=== PATIENT | male | born 1995 | race Caucasian/White ===

== ENCOUNTER 2017-09-06 10:44 | Emergency (ER) | payer BC, SELFPAY ==
[2017-09-06 10:46] VITALS: BP 126/83; PULSE 108; RESP 16; TEMP 37.1; O2SAT 99; BMI 25.1
--- NOTE | 2017-09-06 11:14 | ED.VISSUMM ---
- ER Visit Summary Date of Service: 09/06/17 Chief Complaint: Back pain History of Present Illness: The patient is a 22 M with low back pain since yesterday. No injury or inciting events. He does have a remote history of a compression fracture, he thinks T11 after injuring it while doing squats. This was treated nonoperatively. He denies any weakness or numbness. Denies any change in bowel or bladder. Denies any fevers or infectious symptoms. Denies GI or visceral symptoms. Physical Examination: Heart rate 108 but otherwise vitals unremarkable. Afebrile. Patient is nontoxic and in no acute distress. Back is tender to palpation over the mid lumbar spine towards the left side. There is no spinal tenderness. Overlying skin appears normal. Strength, sensation intact. Gait normal. Test Results: None indicated Emergency Department Course and Treatment: Patient has myofascial back pain. I have essentially no suspicion for fracture. There are no neurologic symptoms. This sounds like myofascial pain as he has tenderness over the paraspinal muscles. Will treat with ibuprofen and Flexeril. Patient declined medication here. Will refer him to primary care for follow-up. Treatment Plan: As above Disposition: Discharged Impression: 1. Left lumbar back pain This note was generated with [employer] dictation software. It may contain incorrect words, spelling, and punctuation that were not noted in review of the chart prior to signing ED Disposition - Plan for ED Patient: Chief Complaint: Back Referrals: Care Physician,No Primary [Primary Care Provider] -
--- NOTE | 2017-09-06 11:17 | ED.DEP ---
ED Disposition - Plan for ED Patient: Chief Complaint: Back Instructions: ED Spasm Back No Trauma Prescriptions: Cyclobenzaprine [Flexeril] 10 mg PO TID PRN #20 tab PRN Reason: Muscle Spasm Ibuprofen 600 mg PO TID #20 tab Referrals: Mariano Jimenes DO [NON CLINICAL AFFILIATE] -
== END 2017-09-06 11:27 | disposition home or self-care (01) ==
LOC: ED 11:17
PROVIDERS: Emergency Provider Emergency Medicine
DX: M54.5 Low back pain (principal); F17.210 Nicotine dependence, cigarettes, uncomplicated
CPT/HCPCS: 99282

== ENCOUNTER 2019-01-07 14:07 | Emergency (ER) | payer OTHER, SELFPAY ==
[2019-01-07 14:07] VITALS: BP 154/94; PULSE 73; RESP 16; TEMP 36.9; O2SAT 98; BMI 26.9
--- NOTE | 2019-01-07 14:28 | ED.VISSUMM ---
- ER Visit Summary Date of Service: 01/07/19 Chief Complaint: Left lower jaw pain with mild swelling after chipping a tooth History of Present Illness: The patient is a 23 M no past medical history. Currently on no medications no allergies to any medications. Patient states yesterday at work he was eating a bit down and chipped his left lower molar. Has previously been capped. States today he is noticed more pain and swelling to his left jaw there. No trouble swallowing or breathing. No fever or chills. Physical Examination: No acute distress. Vital signs stable afebrile. HEENT exam unremarkable except left lower jaw third molar from the back is previously been He has a chipped tooth has been fractured about a quarter the tooth is missing. There is mild gingival swelling. No abscess no fluctuance. Has no trouble opening closing his mouth. No trismus. No trouble swallowing or breathing. Minimal fullness to his left lower lateral jaw. No bony deformity. No lymphadenopathy. Lungs are clear. Heart regular rhythm no murmur. Abdomen soft nontender. Otherwise exam is unremarkable. Test Results: None Emergency Department Course and Treatment: Dental infection status post dental fracture. Pen-Vee K 500 here. He has an appointment to see the dentist tomorrow. Treatment Plan: VK 500 4 times daily for 7 days. Motrin Tylenol for pain. Warm salt water gargling. Follow-up with his dentist tomorrow. Disposition: Discharge Impression: Left lower molar fracture with dental infection This note was generated with [employer] dictation software. It may contain incorrect words, spelling, and punctuation that were not noted in review of the chart prior to signing ED Disposition - Plan for ED Patient: Referrals: Care Physician,No Primary [Primary Care Provider] -
--- NOTE | 2019-01-07 14:31 | ED.DEP ---
ED Disposition - Plan for ED Patient: Disposition: Home or Assisted Living Instructions: Dental Abscess Prescriptions: Penicillin Vk [Pen-Vee K , V-Cillin K] 500 mg PO 4X/DAY #30 tab Prescription Printed Additional Instructions: Motrin Tylenol for pain. Ice to jaw. Pen-Vee K 500 mg 4 times a day. See her dentist tomorrow.
[2019-01-07] MEDS: Penicillin Vk 250 MG Tablet 500 MG PO (14:37)
== END 2019-01-07 14:52 | disposition home or self-care (01) ==
LOC: ED 14:49
PROVIDERS: Emergency Provider Emergency Medicine
DX: S02.5XXA Fracture of tooth (traumatic), initial encounter for closed fracture (principal); K04.7 Periapical abscess without sinus; X58.XXXA Exposure to other specified factors, initial encounter; Y93.9 Activity, unspecified; Y92.9 Unspecified place or not applicable
CPT/HCPCS: 99283

== ENCOUNTER 2020-06-04 21:05 | Emergency (ER) | payer OTHER, SELFPAY ==
[2020-06-04 21:05] VITALS: BP 164/88; PULSE 104; RESP 16; TEMP 36.1; O2SAT 98; BMI 30.7
--- NOTE | 2020-06-04 21:33 | RAD_ITS ---
STUDY: X-RAY - LUMBAR SPINE REASON FOR EXAM: Male, 24 years old. SHARP BACK PAIN WHEN LIFTING THIS MORNING. HX OF COMPRESSION FRACTURES WITH LIFTING. TECHNIQUE: 3 view(s) of the lumbar spine were obtained. COMPARISON: 07 December 2011 FINDINGS: Lumbar spine is intact and aligned. There is chronic healed compression fracture of the superior endplate of T12 with mild anterior wedging deformity and 25% loss of height ventrally. Dorsal cortical height is intact. Mineralization is normal. Paraspinous soft tissue shadows are unremarkable. SI joints are normal. Appearance is stable since priors. RAD/Lumbar Spine 2 or 3 Views IMPRESSION: Normal lumbar spine, no change since prior. Chronic healed T12 anterior compression wedging fracture. No change since 2011. Electronically Signed: Ivan Cuevas, at 21:53 EST Tel , Service support ,
--- NOTE | 2020-06-04 21:44 | ED.DCSUM_ITS ---
- ER Visit Summary Date of Service: 06/04/20 Chief Complaint: Back pain History of Present Illness: The patient is a 24 M who sees Anam Torres. He reports he has back pain that began today while he was doing lifts. He denies any other trauma. No fall or MVA. Reports that he has a history of a fr acture in his back from doing squats and having the [place] on when he was in high school. States he has had 3-4 episodes of this over the past 6 months. Patient complains of a constant aching pain that is 4 out of 10 currently and 10 out of 10 in severity at worst. It is a sharp pain is worsened by movement or walking. Is relieved by remaining still. He is not taking anything for pain. Patient denies radiation to his legs. No numbness or weakness in his legs. No problems with his bowels or his bladder. No groin numbness. Patient denies red flags. Physical Examination: Vitals: Stable. Afebrile. General: A&O x 3. NAD. Cardiovascular exam: Regular rate and rhythm, no murmur, rub or gallop. Respiratory exam: Clear to auscultation bilaterally. No wheezes or stridor. Abdominal exam: Soft, nontender, nondistended, normal bowel sounds. No peritoneal signs. Back: No vertebral or paraspinous muscular tenderness to palpation. Negative straight leg bilaterally. 5/5 DF, PF, EHL bilaterally. Normal sensation to light touch throughout. Extremity: No clubbing, cyanosis, or edema. Test Results: Emergency Departmen Clinical Impression(s) from Imaging Studies Lumbar Spine X-Ray 06/04/20 21:33 IMPRESSION: Normal lumbar spine, no change since prior. Chronic healed T12 anterior compression wedging fracture. No change since 2011. Electronically Signed: Luannemehul Faith, at 21:53 EST Tel , Service support , t Course and Treatment: Patient refused pain medications. Treatment Plan: Patient will be discharged with symptomatic care. Avoid activities that hurt. Use a heating pad. Follow-up his primary care physician in 3 to 5 days if not improving. Return to the emergency department for any worsening symptoms. Disposition: To home in improved and stable condition. Impression: 1. Lumbar strain. This note was generated with [employer] dictation software. It may contain incorrect words, spelling, and punctuation that were not noted in review of the chart prior to signing ED Disposition - Plan for ED Patient: Instructions: ED Back Pain (Acute or Chronic) Referrals: Neo Qiu SOCIAL SECRETARY, SOCIAL SECRETARY-C [Primary Care Provider] - 3-5 Days if not improving
== END 2020-06-04 22:03 | disposition home or self-care (01) ==
LOC: ED 21:47
PROVIDERS: Emergency Provider Emergency Medicine; PCP Nurse Practitioner Family
DX: S39.012A Strain of muscle, fascia and tendon of lower back, initial encounter (principal); X50.0XXA Overexertion from strenuous movement or load, initial encounter; Y93.B3 Activity, free weights; Y92.9 Unspecified place or not applicable; Y99.9 Unspecified external cause status; F17.220 Nicotine dependence, chewing tobacco, uncomplicated
CPT/HCPCS: 72100; 99282

== ENCOUNTER 2021-04-01 10:36 | Emergency (ER) | payer OTHER, SELFPAY ==
[2021-04-01 10:37] VITALS: BP 203/95; PULSE 109; RESP 16; TEMP 36.3; O2SAT 98; BMI 32.8
--- NOTE | 2021-04-01 10:46 | RAD_ITS ---
STUDY: X-RAY - LEFT SHOULDER REASON FOR EXAM: Male, 25 years old. Injury TECHNIQUE: 4 view(s) of the shoulder. COMPARISON: None. FINDINGS: There is no evidence of fracture or dislocation. There are no significant degenerative changes. There are no radiodense foreign bodies. RAD/Shoulder min 2 Views IMPRESSION: No fracture or dislocation. Electronically Signed: Javed Riley MD at 11:04 EDT Tel , Service support ,
--- NOTE | 2021-04-01 10:47 | EDS_ITS ---
HPI History of Present Illness Chief Complaint: Chest Other Detail of Chief Complaint: Injury to left chest/shoulder Informant: patient Narrative Narrative: Patient presents to the emergency department complaint of an injury to his left chest and shoulder that occurred about an hour ago. Patient states that he was working out and doing incline bench presses with 245 pounds and was on his ninth rep when he felt a tear in his left upper chest into his shoulder. Patient complains of pain with movement. He denies any difficulty breathing. Pain is not pleuritic. He denies shortness of breath. PFSH PFSH Medical History no medical history Home Medications NK 06/04/20 [History Last Taken Unknown] Allergy/AdvReac Type Severity Reaction Status Date / Time bee venom protein (honey bee) Allergy Other Verified 04/01/21 10:37 Surgical History no surgical history Social History Smoking Status: Never smoker ROS ROS ED Constitutional Constitutional ED: Reports systems reviewed and no addt'l complaints, except as documented; Denies body ache(s), change in weight or chills Eyes Eyes: Denies acute decrease in peripheral vision, change in vision, double vision or loss of vision ENT ENT ED: Reports none; Denies ear pain, lip swelling, loss taste/smell, neck pain, otalgia or sore throat Cardiovascular Cardiovascular: Reports none; Denies abdominal pain, chest pain with activity, leg edema, lightheadedness, palpitations, rapid heart rate or syncope Respiratory/Chest Respiratory/Chest: Reports none; Denies change in mental status, dry cough, dyspnea, hemoptysis, shortness of breath at rest or shortness of breath with exertion Gastrointestinal Gastrointestinal: Reports none; Denies abdominal pain, change in stool character, diarrhea, hematemesis, hematochezia, melena, rectal bleeding or vomiting Genitourinary Genitourinary ED: Reports none; Denies abdominal discomfort, anuria, dysuria, genital pain or polyuria Musculoskeletal Musculoskeletal: Reports none and other Details: Left upper chest and left shoulder pain ; Denies arthralgias, back pain, difficulty walking, extremity pain, muscle weakness or myalgias Integumentary Reports none; Denies abscess or rash Neurologic Neurologic: Reports none; Denies abnormal gait, confusion, focal weakness, frequent falls, headache(s), loss of vision, numbness, paresthesias, radicular pain, vertigo or weakness Psychiatric Psychiatric: Reports systems reviewed and no addt'l complaints, except as documented and none; Denies behavioral changes, confusion, difficulty concentrating, hallucinations, suicidal ideation, tactile hallucinations or visual hallucinations Endocrine Endocrinology: Denies none, cold intolerance, excessive sweating, fatigue or heat intolerance Hematologic/Lymphatic Hematologic/Lymphatic: Reports none; Denies anemia, easy bleeding or easy bruising Allergic/Immunologic Allergic/Immunologic ED: Denies as per HPI, none, lip swelling, mouth swelling, throat swelling, tongue swelling or hives EXAM Physical Exam Const Vital Signs: 04/01/21 10:37 Temperature 97.4 F L Temperature Source Temporal Pulse Rate 109 H Respiratory Rate 16 Blood Pressure 203/95 H Blood Pressure Mean 131 Pulse Ox 98 Oxygen Delivery Method Room Air Positive well nourished and well developed General Appearance ED: well developed and NAD HEENT Reports TM's clear and moist mucous membranes normocephalic and atraumatic; Negative for trauma or tenderness Tympanic Membrane ED: Yes TM's clear Eyes PERRL and EOMs intact bilaterally General Eye ED: Negative for pale conjunctiva or scleral icterus Neck no lymphadenopathy, supple and no JVD General: Negative for tenderness Chest Wall inspection of chest normal and palpation of chest normal Chest: Negative for tenderness Resp normal respiratory effort and clear to auscultation bilaterally Effort and Inspection: Negative for respiratory distress or pain with movement Auscultation: Negative for rhonchi, wheezes or diminished lung sounds Cardio regular rate, regular rhythm, S1 normal heart sound, S2 normal heart sound and no murmurs Peripheral Pulses: pulses 2+ throughout GI normal to inspection, nondistended, normoactive bowel sounds, soft to palpation, non-tender, non-distended and no masses Back/Spine no CVA tenderness and no thoracic nor lumbar tenderness Extremity normal to inspection Extremity Narrative: Patient has some tenderness palpation over the anterior glenohumeral joint and at the insertion of the pectoralis major tendon. No obvious deformity palpated. There is no obvious deformity on exam noted. Patient has good range of motion at the glenohumeral joint and he is able to abduct past 90 degrees against resistance. Neurovascularly intact distally. General Extremety ED: Negative for edema General Extremity: Negative for edema Neuro oriented x3, CN's II-XII intact bilaterally, no sensory deficits noted and gait normal Sensorium / Orientation: awake, alert, oriented to person, oriented to place and oriented to time Motor Exam: strength 5/5 throughout and strength abnormal Psych mental status grossly normal Skin no rashes or lesions noted and no wounds MDM MDM MDM Narrative Medical decision making narrative: I suspect patient likely has a soft tissue injury to the pectoralis major or pectoralis minor muscle or tendon. There is no obvious defect or deformity noted at this time. He will be given a sling for comfort. He denies anything for pain. Patient will be referred to orthopedics for follow-up. Radiography Diagnostic Testin view x-rays of left shoulder obtained interpreted by myself as no acute fractures or dislocations. Radiology in agreement. Discharge Plan Triage Chief Complaint: Chest Other ED Provider: Martina Morin Dx/Rx/DC Orders Clinical Impression: Muscle strain of chest wall Instructions: ED Strain Chest Wall Prescriptions: No Action NK RF: 0 Primary Care Provider: Neo Qiu NP Referrals: Tristan Johnson MD [STAFF PHYSICIAN] - 3-5 Days Neo Qiu NP, [employer]BER-C [Primary Care Provider] - Disposition Disposition: Home, Self Care
== END 2021-04-01 11:20 | disposition home or self-care (01) ==
LOC: ED 11:16
PROVIDERS: Emergency Provider Emergency Medicine; PCP Nurse Practitioner Family
DX: S29.011A Strain of muscle and tendon of front wall of thorax, initial encounter (principal); X50.0XXA Overexertion from strenuous movement or load, initial encounter; Y93.B9 Activity, other involving muscle strengthening exercises; Y92.9 Unspecified place or not applicable; Y99.9 Unspecified external cause status
CPT/HCPCS: 73030; 99283

== ENCOUNTER 2022-12-20 00:38 | Emergency (ER) | payer SELFPAY ==
[2022-12-20 00:38] VITALS: BP 157/91; PULSE 141; RESP 24; O2SAT 94
[2022-12-20 00:39] VITALS: PULSE 149; RESP 16; TEMP 36.1; O2SAT 97; BMI 31.2
--- NOTE | 2022-12-20 01:10 | EKG12_ITS ---
Test Reason : tachycardia Blood Pressure : / mmHG Vent. Rate : 140 BPM Atrial Rate : 140 BPM P-R Int : 148 ms QRS Dur : 086 ms QT Int : 268 ms P-R-T Axes : 061 108 006 degrees QTc Int : 409 ms Sinus tachycardia Possible Left atrial enlargement Rightward axis T wave abnormality, consider inferior ischemia Abnormal ECG Confirmed by LAURE JIN, JUVENTINO ([id number]), graphic editor JENNIFER WOODS ([id number]) on 12/20/2022 1:23:20 PM Referred By: Leonid Confirmed By:JUVENTINO KELSEY MD
--- NOTE | 2022-12-20 01:10 | RAD_ITS ---
EXAM: XR CHEST, 1 VIEW CLINICAL INDICATION: chest pain TECHNIQUE: Frontal view of the chest. COMPARISON: Chest radiographic report of 04/14/2012. FINDINGS: LUNGS AND PLEURAL SPACES: Unremarkable. No consolidation or edema. No pneumothorax. No effusion. Lungs are not hyperinflated. HEART: Unremarkable. Cardiac silhouette not enlarged. Normal pulmonary vasculature. MEDIASTINUM: Central airways and mediastinal contour are unremarkable. Trachea is midline. No mediastinal widening. BONES/JOINTS: No acute osseous abnormality. SOFT TISSUES: Unremarkable. RAD/Chest 1 View (Portable) IMPRESSION: No radiographic evidence of acute cardiopulmonary disease. Electronically Signed: Fran Stephenson MD at 1:35 EDT ,
--- NOTE | 2022-12-20 01:33 | EDS_ITS ---
HPI History of Present Illness Chief Complaint: Palpitations Detail of Chief Complaint: After snorting cocaine tonight. Informant: patient Onset/Context/Timing Onset: Today and Hours Activity at onset: sudden and onset Timing: Continuous Quality: Positive for Aching Location: Left Chest Current Severity: Mild Maximum Severity: Mild Worsened By: Nothing Relieved By: Nothing Associated Symptoms: Positive for Dyspnea Narrative Narrative: 27-year-old male history of cocaine use. He used cocaine tonight around 11 PM. Shortly thereafter developed accelerated heart rate and left-sided chest discomfort. Denies vomiting or diarrhea. He describes it as a tightness and aching. He has used cocaine before not had this happen. He is also drink alcohol tonight. Patient denies any other significant past medical history. No cardiac history. No history of DVT or PE risk factors. No leg pain or swelling. No hemoptysis. Prior Similar Symptoms: No Recent Illness/Hospitalization: No CVD Risk Factors: Negative for Hypertension, Diabetes or Hypercholesterolemia PE Risk Factors: Negative for Recent Travel/Surgery, Recent Immobilization, Prior DVT or PE or Cancer TAD Risk Factors: Negative for Marfan's Syndrome PFSH PFS Medical History Broken back Broken neck Drug use Home Medications NK 06/04/20 [History Last Taken Unknown] Allergy/AdvReac Type Severity Reaction Status Date / Time bee venom protein (honey bee) Allergy Other Verified 04/01/21 10:37 Family History Mother Clotting disorder Social History Smoking Status: Never smoker ROS ROS ED ROS Narrative Tachycardia and chest discomfort. After cocaine use. Review of Systems ROS Unobtainable: Denies due to encephalopathy Constitutional Constitutional ED: Denies chills ENT ENT ED: Denies ear pain Cardiovascular Cardiovascular: Reports as per HPI, chest pain, palpitations and racing heartbeat Respiratory/Chest Respiratory/Chest: Reports dyspnea; Denies cough Gastrointestinal Gastrointestinal: Denies abdominal pain Genitourinary Genitourinary ED: Denies dysuria Musculoskeletal Musculoskeletal: Denies arthralgias Integumentary Denies abscess Neurologic Neurologic: Denies headache(s) Psychiatric Psychiatric: Denies anxiety Endocrine Endocrinology: Denies cold intolerance Hematologic/Lymphatic Hematologic/Lymphatic: Denies easy bleeding Allergic/Immunologic Allergic/Immunologic ED: Denies mouth swelling EXAM Physical Exam Narrative Exam Narrative: Well-appearing 27-year-old male. Vital signs are stable and he is tachycardic in the 140 range. HEENT exam unremarkable. Neck nontender no JVD. Lungs clear to auscultation bilaterally. Heart tachycardic rate of 143 no murmur. Chest were nontender. Abdomen soft nontender. Moving all 4 extremities. Calves are nontender without edema or cords. Neurologically is awake and alert with no focal motor deficits. NIH is 0. 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 Bilateral dorsi plantarflexion. Const Vital Signs: 12/20/22 00:39 12/20/22 00:38 12/20/22 05:25 Temperature 97 F L Temperature Source Temporal Pulse Rate 149 H 141 H Respiratory Rate 16 24 H Blood Pressure 157/91 H Blood Pressure Mean 113 Pulse Ox 97 94 Oxygen Delivery Method Room Air Room Air Room Air Positive well nourished and well developed; Negative for cachectic, contractures or unkempt General Appearance ED: well developed and NAD; Negative for unkempt, cachectic, contractures or pallor Nutritional Appearance: Negative for cachectic HEENT Reports moist mucous membranes; Denies dry mucous membranes normocephalic and atraumatic; Negative for trauma or tenderness Mouth ED: No dry mucous membranes Mouth: No dry mucous membranes Eyes PERRL and EOMs intact bilaterally General Eye ED: Negative for pale conjunctiva or scleral icterus Neck no lymphadenopathy, supple and no JVD Chest Wall inspection of chest normal and palpation of chest normal Chest: Negative for tenderness Resp normal respiratory effort and clear to auscultation bilaterally Effort and Inspection: Negative for respiratory distress Auscultation: Negative for rales, rhonchi or wheezes Cardio regular rhythm, S1 normal heart sound, S2 normal heart sound and no murmurs; Negative for regular rate Rate: tachycardic Peripheral Pulses: pulses 2+ throughout GI normal to inspection, nondistended, normoactive bowel sounds, soft to palpation, non-tender, non-distended and no masses Back/Spine no CVA tenderness and no thoracic nor lumbar tenderness General Back: Negative for CVA tenderness Cervical Spine: Negative for cervical spine tenderness Extremity General Extremety ED: Negative for edema or pulses abnormal General Extremity: Negative for edema or pulses abnormal Neuro oriented x3 and CN's II-XII intact bilaterally Sensorium / Orientation: awake, alert, oriented to person, oriented to place and oriented to time; Negative for confused, lethargic or stuporous Motor Exam: strength 5/5 throughout Psych mental status grossly normal Appearance: Negative for unkempt Attitude: No agitated Mood & Affect: Negative for depressed, anxious or tearful Skin no rashes or lesions noted and no wounds General Skin Exam: Negative for jaundice or pallor Rashes: No rashes noted Trauma: Negative for abrasion or laceration Heart Score History: Moderately Suspicious ECG: Normal Age: </= 45 years Risk Factors: 1 or 2 Risk Factors Troponin: </= Normal Limit Score: 2 MDM MDM MDM Narrative Medical decision making narrative: 27-year-old male with tachycardia and chest discomfort that is since resolved after snorting cocaine. Denies IV drug use. Undergo cardiac work-up. Multiple repeat exams the patient was doing better. His heart rate was slowly coming down but still tachycardic between 110-120. I was going to do a second troponin. Patient was getting anxious and did not want to stay in the emergency department. Took out his IV and left. History & Record Review Discussion w/independent historian: Patient Lab Data Attestation: I reviewed the patient's lab results. Lab results narrative: Chemistries unremarkable except for his creatinine of 1.55. Anion gap of 9. Troponin is normal at 38. CBC was was ordered not completed. Radiography Chest X-Ray - ED: 1 View, Read by ED Physician, Read by Radiologist, Normal, Heart, Lungs, Mediastinum, Bony Structures and No Acute Disease Diagnostic Testing: Clinical Impression(s) from Imaging Studies Chest X-Ray 12/20/22 01:10 IMPRESSION: No radiographic evidence of acute cardiopulmonary disease. Electronically Signed: Fran Stephenson MD at 1:35 EDT , Chest x-ray portable, single view, interpreted by myself and radiologist shows no acute abnormality. Normal cardiac silhouette. Normal mediastinum. Normal lung qiu. Rhythm Strip Rhythm Strip: Sinus Tach Rate: 140 Ectopy: None EKG Initial EKG: Attestation: I personally reviewed and interpreted this EKG as follows: Interpretation: No Acute Injury Pattern and Sinus Tachycardia Comments: Sinus tachycardia rate of 143. No acute TX or ST elevation. Prior EKG tracings: not available for review Discharge Plan Triage Chief Complaint: Palpitations ED Provider: Mehran Jaquez Dx/Rx/DC Orders Clinical Impression: Cocaine use, Tachycardia, Chest pain Prescriptions: No Action NK Primary Care Provider: Neo Qiu NP Referrals: Neo Qiu [employer], [employer]-C [Primary Care Provider] - Disposition Disposition: Home, Self Care Discharge Date/Time: 12/20/22 03:20
--- NOTE | 2022-12-20 05:24 | ED.RN ---
See downtime charting for elopement.
[2022-12-20 06:26] LABS: Anion Gap 9 (5-15); BUN 4 mg/dL (7-18); BUN/Creat Ratio 2.6 RATIO (10-20); Calcium,Total 8.6 mg/dL (8.5-10.1); Chloride 103 mmol/L (98-107); Creatinine, Serum 1.55 mg/dL (0.70-1.30); EST Glomerular Filtration Rate 57 mL/min (>60); Est Glom Filt Rate - Afr Amer 69 mL/min (>60); Estimated Creatinine Clearance 76.24 ml/min; Glucose 136 mg/dL (74-106); Potassium 4.3 mmol/L (3.5-5.1); Sodium Level 138 mmol/L (136-145); Troponin-I HS 39 pg/mL (3.0-78.0)
== END 2022-12-20 03:20 | disposition left against medical advice (07) ==
LOC: ED 00:56
PROVIDERS: Emergency Provider Emergency Medicine; PCP Nurse Practitioner Family; Visit Provider Emergency Medicine
DX: F14.90 Cocaine use, unspecified, uncomplicated (principal); R07.9 Chest pain, unspecified; R00.2 Palpitations; R06.00 Dyspnea, unspecified
CPT/HCPCS: 71045; 80048; 84484; 93005; 99285; A4216